=== PATIENT | female | born 1995 | race Caucasian/White ===

== ENCOUNTER → 2016-09-14 | Day surgery (SDC) | payer OTHER ==
[~2016-09-14] MED LIST: ALIG4CAP PO; DICY10CA13 PO; KETOROLAC 60 MG/2 ML VIAL (J1885) As Ordered ONE; LEVA12INH INH; LIDOCAINE 1% SDV INJ 30 ML VIAL As Ordered ONE; LIDOCAINE 2% INJ 100 MG/5 ML SDV (FOR ANES.) As Ordered ONE; LR 1,000 ML IV SCH; METHYLERGONOVINE MALEATE 0.2 MG/ML VIAL (J2210) As Ordered ONE; METHYLERGONOVINE MALEATE 0.2 MG/ML VIAL (J2210) XX ONE; MIDAZOLAM INJ 2 MG/2 ML VIAL (J2250) As Ordered ONE; OMEP20CA3 PO; ONDANSETRON 4MG/2ML VIAL (J2405) As Ordered ONE; ONDANSETRON 4MG/2ML VIAL (J2405) IV PRN; PRENTAB44 PO; PROPOFOL 200 MG/20 ML VIAL As Ordered ONE; RANI150T PO; ZOFR4TAB3 PO; fentaNYL 100 MCG/2 ML INJECTION (J3010) As Ordered ONE; fentaNYL 100 MCG/2 ML INJECTION (J3010) IV PRN; miSOPROStol 200 MCG TAB (S0191) As Ordered ONE; miSOPROStol 200 MCG TAB (S0191) XX ONE
[2016-09-14 13:20] VITALS: BP 116/55
--- NOTE | 2016-09-14 18:21 | RO ---
DATE OF PROCEDURE: 09/14/2016 PREPROCEDURE DIAGNOSIS: demise 11 weeks gestation. POSTPROCEDURE DIAGNOSIS: demise 11 weeks gestation. OPERATIVE PROCEDURE: Suction dilation and curettage (D and C). Ultrasound assisted. SURGEON: Milton Arthur MD SKI TECHNICIAN: ANESTHESIA: General endotracheal. ESTIMATED BLOOD LOSS: 300 mL. FINDINGS: 11-12 week size uterus, moderate amounts of products of conception, moderate uterine atony encountered. URINE OUTPUT: 100 mL. DESCRIPTION OF PROCEDURE: The patient was taken to the operating room where general endotracheal anesthesia was induced. She was prepped and draped in a sterile fashion, in the dorsal lithotomy position. A speculum was placed in the vagina. The anterior lip of the cervix was grasped with tenaculum. Cervix was dilated with tapered dilators. A #11 mm suction curette was inserted through the internal os. Suction device was activated and the curette was gently rotated and products of conception were noted coming through the suction tubing. A large unexpected amount of bleeding was encountered. Repeat suctioning was performed. Sharp curettage was performed. The patient received Methergine 0.2 mg intramuscular (IM). She received Cytotec 800 mcg per rectum. Ultrasound was brought in to ensure complete evacuation of the uterus. There was a moderate amount of debris consistent with retained blood clot of the uterus. Suction and curettage was performed under ultrasound guidance. Sharp curettage performed. At the end of the procedure there was defined discrete endometrial stripe noted. Excellent uterine tone was noted with no excess bleeding. Products of conception were examined in the operating room. Speculum was removed. Sponge and instrument counts were correct. The patient went to the recovery room in stable condition.
== END | disposition home or self-care (01) ==
LOC: M SDC 07:12
PROVIDERS: ATTEND Specialist
DX: O02.89 Other abnormal products of conception (principal); Z88.0 Allergy status to penicillin
CPT/HCPCS: 36415; 59870; 85014; 85018; 88305; J1885; J2210; J2250; J2405; J3010

== ENCOUNTER → 2016-10-08 | Outpatient (REF) | payer OTHER ==
[~2016-10-08] MED LIST changes: -KETOROLAC 60 MG/2 ML VIAL (J1885) As Ordered ONE; -LIDOCAINE 1% SDV INJ 30 ML VIAL As Ordered ONE; -LIDOCAINE 2% INJ 100 MG/5 ML SDV (FOR ANES.) As Ordered ONE; -LR 1,000 ML IV SCH; -METHYLERGONOVINE MALEATE 0.2 MG/ML VIAL (J2210) As Ordered ONE; -METHYLERGONOVINE MALEATE 0.2 MG/ML VIAL (J2210) XX ONE; -MIDAZOLAM INJ 2 MG/2 ML VIAL (J2250) As Ordered ONE; -ONDANSETRON 4MG/2ML VIAL (J2405) As Ordered ONE; -ONDANSETRON 4MG/2ML VIAL (J2405) IV PRN; -PROPOFOL 200 MG/20 ML VIAL As Ordered ONE; -fentaNYL 100 MCG/2 ML INJECTION (J3010) As Ordered ONE; -fentaNYL 100 MCG/2 ML INJECTION (J3010) IV PRN; -miSOPROStol 200 MCG TAB (S0191) As Ordered ONE; -miSOPROStol 200 MCG TAB (S0191) XX ONE
== END ==
LOC: M LAB REF 16:06
PROVIDERS: ATTEND Specialist
DX: O08.0 Genital tract and pelvic infection following ectopic and molar pregnancy (principal)

== ENCOUNTER → 2016-10-23 | Outpatient (CLI) | payer OTHER | LOC: M SMT 10:03 | PROVIDERS: ATTEND Specialist | DX: O02.1 Missed abortion (principal) ==

== ENCOUNTER → 2016-11-24 | Outpatient (REF) | payer OTHER | LOC: M LABDRWLA 15:55 | PROVIDERS: ATTEND Specialist | DX: Z32.00 Encounter for pregnancy test, result unknown (principal) ==

== ENCOUNTER → 2016-12-22 | Outpatient (REF) | payer OTHER | LOC: M LABDRWLA 15:04 | PROVIDERS: ATTEND Specialist | DX: O09.A2 Supervision of pregnancy with history of molar pregnancy, second trimester (principal) ==

== ENCOUNTER → 2017-01-21 | Outpatient (REF) | payer OTHER | LOC: M LABDRWAD 14:53 | PROVIDERS: ATTEND Specialist | DX: O02.1 Missed abortion (principal) ==

== ENCOUNTER → 2017-02-23 | Outpatient (REF) | payer OTHER | LOC: M LAB REF 14:44 | PROVIDERS: ATTEND Specialist | DX: O02.1 Missed abortion (principal) ==

== ENCOUNTER → 2017-04-26 | Outpatient (CLI) | payer OTHER ==
[2017-04-26 13:59] LABS: BASO % 0.5 % (0.0-1.0); EOS % 0.9 % (0.0-3.0); LARGE UNSTAINED CELL # 0.1 K/mm3 (0.0-0.4); LARGE UNSTAINED CELL % 1.4 % (0.0-4.0); LYMPH # 1.1 K/mm3 (1.5-6.5); LYMPH % 25.2 % (24.0-44.0); MEAN CORPUSCULAR HEMOGLOBIN 31.6 pg (27.0-33.0); MEAN CORPUSCULAR HGB CONC 34.6 g/dl (32.0-36.5); MEAN CORPUSCULAR VOLUME 91.1 fl (80.0-96.0); MONO # 0.3 K/mm3 (0.0-0.8); MONO % 5.7 % (0.0-5.0); NEUTROPHILS % 66.3 % (36.0-66.0); PLATELET COUNT, AUTOMATED 174 k/mm3 (150-450); RED CELL DISTRIBUTION WIDTH 11.9 % (11.5-14.5); WHITE BLOOD COUNT 4.5 K/mm3 (4.0-10.0)
[2017-04-26 14:50] LABS: HBsAg Prenatal NEGATIVE (NEGATIVE)
== END ==
LOC: M SMT 11:45
PROVIDERS: ATTEND Specialist
DX: Z34.81 Encounter for supervision of other normal pregnancy, first trimester (principal)

== ENCOUNTER → 2017-07-07 | Outpatient (CLI) | payer OTHER | LOC: M SMT 08:37 | PROVIDERS: ATTEND Obstetrics & Gynecology | DX: Z13.79 Encounter for other screening for genetic and chromosomal anomalies (principal) ==

== ENCOUNTER → 2017-07-26 | Outpatient (CLI) | payer OTHER ==
--- NOTE | 2017-07-26 19:16 | REP ---
Obstetric sonography: History: Supervision of , second trimester study for anatomy. Findings: Scanning through the gravid uterus demonstrates a viable single intrauterine gestation in a variable lie. motion is observed and heart rate is recorded at 147 beats per minute. A posterior placenta is seen grade 0 without evidence of previa or abruption. Amniotic fluid is subjectively normal. Closed cervical length measured transabdominally is 3.7 cm. No extrauterine abnormalities observed. There is a small choroid plexus cyst on the left side of the cranium. No other anatomic finding. The following anatomic structures are identified and felt to be sonographically unremarkable: cranium, cavum, cerebellum and posterior fossa, face and profile, lungs, four-chamber heart with left and right ventricular outflow tract views, diaphragm, left-sided stomach, abdominal wall cord insertion, three-vessel umbilical cord, kidneys and bladder, spine, upper and lower extremities. Biometry chart: BPD is 4.7 cm = 20 weeks 1 day HC 17.9 cm = 20 weeks 2 days AC 16.0 cm = 21 weeks 1 day FL 3.1 cm = 19 weeks 4 days HL 3.1 cm = 20 weeks 2 days HC/AC ratio normal 1.12. Cephalic index normal 0.72. Estimated weight 352 grams, 0 pounds 12 ounces, greater than 97th percentile for 19 weeks 1 day. Impression: Viable single intrauterine gestation at 20 weeks 2 days by today's composite sonographic criteria. JED by today's sonography December 11, 2017. A small, 4.6 mm, left sided choroid plexus cyst is seen. No other anatomic abnormality seen. Signed by Scott Guerrero MD 07/26/2017 07:58 P
== END ==
LOC: M RAD 15:48
PROVIDERS: ATTEND Obstetrics & Gynecology
DX: Z34.82 Encounter for supervision of other normal pregnancy, second trimester (principal); Z3A.20 20 weeks gestation of pregnancy

== ENCOUNTER → 2017-09-13 | Outpatient (CLI) | payer OTHER ==
[2017-09-13 13:50] LABS: HEMATOCRIT 35.9 % (36.0-47.0); HEMOGLOBIN 11.9 g/dl (12.0-16.0); MEAN CORPUSCULAR HEMOGLOBIN 30.6 pg (27.0-33.0); MEAN CORPUSCULAR HGB CONC 33.1 g/dl (32.0-36.5); MEAN CORPUSCULAR VOLUME 92.3 fl (80.0-96.0); PLATELET COUNT, AUTOMATED 156 10^3/uL (150-450); RED BLOOD COUNT 3.89 10^6/uL (4.00-5.40); RED CELL DISTRIBUTION WIDTH 13.1 % (11.5-14.5); WHITE BLOOD COUNT 8.5 10^3/uL (4.0-10.0)
[2017-09-13 14:13] LABS: GLUCOSE CHALLENGE TEST 1 HOUR 70 MG/DL (LESS THAN 140)
== END ==
LOC: M SMT 10:50
DX: Z34.82 Encounter for supervision of other normal pregnancy, second trimester (principal)
CPT/HCPCS: 82950

== ENCOUNTER → 2017-10-25 | Outpatient (CLI) | payer OTHER | LOC: M RAD 18:01 | DX: O36.5931 Maternal care for other known or suspected poor fetal growth, third trimester, fetus 1 (principal); Z3A.34 34 weeks gestation of pregnancy | CPT/HCPCS: 76816 ==

== ENCOUNTER → 2017-11-15 | Outpatient (CLI) | payer OTHER | LOC: M RAD 14:35 | DX: R22.41 Localized swelling, mass and lump, right lower limb (principal) | CPT/HCPCS: 93971 ==

== ENCOUNTER → 2017-11-26 | Outpatient (REF) | payer OTHER | LOC: M LAB REF 17:15 | DX: Z34.83 Encounter for supervision of other normal pregnancy, third trimester (principal) | CPT/HCPCS: 87081 ==

== ENCOUNTER 2017-12-13 05:59 | Inpatient (IN) | payer OTHER ==
[2017-12-13 07:12] LABS: HEMATOCRIT 33.5 % (36.0-47.0); HEMOGLOBIN 11.3 g/dl (12.0-15.5); MEAN CORPUSCULAR HEMOGLOBIN 29.4 pg (27.0-33.0); MEAN CORPUSCULAR HGB CONC 33.7 g/dl (32.0-36.5); MEAN CORPUSCULAR VOLUME 87.2 fl (80.0-96.0); PLATELET COUNT, AUTOMATED 146 10^3/uL (150-450); RED BLOOD COUNT 3.84 10^6/uL (4.00-5.40); WHITE BLOOD COUNT 11.1 10^3/uL (4.0-10.0)
[2017-12-13] MEDS: miSOPROStol 50 MCG 1/2 TAB (S0191) PO (09:12)
[2017-12-13] MEDS ORDERED: miSOPROStol 50 MCG 1/2 TAB (S0191) PO (14:15)
[2017-12-13] MEDS: OXYTOCIN DRIP 30 UNITS in APPROPRIATE DILUENT 1 EA IV (15:22)
[2017-12-13] MEDS: LR 1,000 ML IV (15:22)
[2017-12-13] MEDS ORDERED: PROMETHAZINE INJ 25 MG/ML VIAL (J2550) As Ordered (23:14)
[2017-12-13] MEDS ORDERED: BUTORPHANOL 2 MG/ML INJ (J0595) As Ordered (23:14)
[2017-12-13] MEDS: PROMETHAZINE INJ 25 MG/ML VIAL (J2550) IV (23:21)
[2017-12-13] MEDS: BUTORPHANOL 2 MG/ML INJ (J0595) IV (23:22)
[2017-12-14] MEDS ORDERED: FENTANYL 2MCG/ML ROPIVACAINE 0.2% IN 0.9% NACL 200ML IVBAG As Ordered (03:20)
[2017-12-14] MEDS ORDERED: EPIDURAL COMMENT XX (03:42)
[2017-12-14] MEDS ORDERED: NALOXONE INJ 0.4 MG/1 ML VIAL (J2310) IV (03:42)
[2017-12-14] MEDS ORDERED: LACTATED RINGER'S 1000 ML IV (03:42)
[2017-12-14] MEDS ORDERED: REFRIGERATOR IV KEYS XX (03:42)
[2017-12-14] MEDS ORDERED: ePHEDrine SULFATE 25 MG/5 ML(5MG/ML) SYRINGE IV (03:42)
[2017-12-14] MEDS ORDERED: FENTANYL/ROPIVACAINE/NACL BAG 200 ML EPIDURAL (03:42)
[2017-12-14] MEDS ORDERED: EPIDURAL/PCA KEYS XX (03:42)
[2017-12-14] MEDS ORDERED: ONDANSETRON 4MG/2ML VIAL (J2405) IV ×2 (03:42→16:30)
[2017-12-14] MEDS ORDERED: diphenhydrAMINE INJ 50MG/ML VIAL (J1200) IV (03:42)
[2017-12-14] MEDS: LR 1,000 ML IV ×2 (11:19→16:19)
[2017-12-14] MEDS ORDERED: OXYTOCIN 30 UNITS IN 0.9% NaCl 500ML IV BAG (J2590) As Ordered (14:38)
[2017-12-14] MEDS ORDERED: DOCUSATE SODIUM 100 MG CAP PO (16:30)
[2017-12-14] MEDS ORDERED: PROMETHAZINE 25 MG TAB PO (16:30)
[2017-12-14] MEDS: OXYTOCIN DRIP 30 UNITS in APPROPRIATE DILUENT 1 EA IV (16:56)
[2017-12-14] MEDS: MEASLES,MUMPS,RUBELLA VACCINE INJ (MMR-II) (90707) SC (18:07)
[2017-12-14] MEDS: RHOGAM 300 MCG (1500 IU) INJ (J2790) IM (18:08)
[2017-12-14] MEDS: IBUPROFEN 800 MG TAB PO (20:42)
[2017-12-14] MEDS: DIBUCAINE 1% OINTMENT 30GM TOP (23:11)
[2017-12-14] MEDS: ACETAMINOPHEN 500 MG TAB PO (23:11)
[2017-12-15] MEDS: PRENATAL VITAMINS CHEWABLE TABLET PO (08:24)
[2017-12-15] MEDS: IBUPROFEN 800 MG TAB PO ×2 (08:25→18:20)
[2017-12-15] MEDS: ACETAMINOPHEN 500 MG TAB PO ×2 (14:56→21:56)
[2017-12-16] MEDS: IBUPROFEN 800 MG TAB PO ×2 (01:56→09:44)
[2017-12-16] MEDS: PRENATAL VITAMINS CHEWABLE TABLET PO (08:12)
== END 2017-12-16 10:28 | disposition home or self-care (01) | DRG 560 ==
LOC: M LDI 05:59 → M OBS 12-14 17:32
PROVIDERS: Obstetrics & Gynecology
PROC: 3E0P7GC Introduction of Other Therapeutic Substance into Female Reproductive, Via Natural or Artificial Opening (ICD-10-PCS; 2017-12-13)
PROC: 10E0XZZ Delivery of Products of Conception, External Approach (ICD-10-PCS; principal; 2017-12-14)
PROC: 0KQM0ZZ Repair Perineum Muscle, Open Approach (ICD-10-PCS; 2017-12-14)
DX: O26.893 Other specified pregnancy related conditions, third trimester (principal); M32.9 Systemic lupus erythematosus, unspecified; Z3A.39 39 weeks gestation of pregnancy; O69.81X0 Labor and delivery complicated by cord around neck, without compression, not applicable or unspecified; Z37.0 Single live birth; Z88.0 Allergy status to penicillin; Z88.7 Allergy status to serum and vaccine; Z88.1 Allergy status to other antibiotic agents; O70.1 Second degree perineal laceration during delivery

== ENCOUNTER 2019-05-31 13:45 | Emergency (ER) | payer OTHER ==
[~2019-05-31] VITALS: Ht 165.1 cm; Wt 65.9 kg
[~2019-05-31 13:45] MED LIST changes: +IBUP-1114 PO; +MAPA500T2 PO; -OMEP20CA3 PO; +OMEP20CA4 PO; +TUMS750C22 PO; +ZOFR4TAB14 PO; -ZOFR4TAB3 PO
[2019-05-31] MEDS ORDERED: ASPI81CH33 PO (13:54)
[2019-05-31 14:46] LABS: BASO % 0.6 % (0.0-1.0); EOS % 0.2 % (0.0-3.0); HEMATOCRIT 37.2 % (36.0-47.0); HEMOGLOBIN 12.9 g/dl (12.0-15.5); LYMPH # 1.2 10^3/uL (1.5-5.0); LYMPH % 22.3 % (24.0-44.0); MEAN CORPUSCULAR HEMOGLOBIN 30.1 pg (27.0-33.0); MEAN CORPUSCULAR HGB CONC 34.7 g/dl (32.0-36.5); MEAN CORPUSCULAR VOLUME 86.9 fl (80.0-96.0); MONO # 0.4 10^3/uL (0.0-0.8); NEUTROPHILS # 3.6 10^3/uL (1.5-8.5); NEUTROPHILS % 68.7 % (36.0-66.0); PLATELET COUNT, AUTOMATED 152 10^3/uL (150-450); RED BLOOD COUNT 4.28 10^6/uL (4.00-5.40); WHITE BLOOD COUNT 5.3 10^3/uL (4.0-10.0)
[2019-05-31 15:05] LABS: BLOOD UREA NITROGEN 11 MG/DL (7-18); CALCIUM LEVEL 9.3 MG/DL (8.5-10.1); CARBON DIOXIDE LEVEL 22 MEQ/L (21-32); CHLORIDE LEVEL 109 MEQ/L (98-107); CREATININE FOR GFR 0.64 MG/DL (0.55-1.30); GLOMERULAR FILTRATION RATE > 60.0 (>60); GLUCOSE, FASTING 97 MG/DL (70-100); POTASSIUM SERUM 3.7 MEQ/L (3.5-5.1); SODIUM LEVEL 139 MEQ/L (136-145)
--- NOTE | 2019-05-31 15:20 | REP ---
EMERGENCY FIRST TRIMESTER OBSTETRIC SONOGRAPHY: HISTORY: Cramping and spotting. 7 weeks 4 days by dates. FINDINGS: Transabdominal sonography confirms the presence of a living single intrauterine gestation. The embryonic pole measures 6 mm. This corresponds with a gestational age estimate of 6 weeks 2 days. heart rate is recorded at 100 beats per minute. No subchorionic hemorrhage is identified. There is a 3.1 x 2.7 x 2.4 cm cyst in the maternal left ovary consistent with corpus luteum. IMPRESSION: Viable single intrauterine gestation at 6 weeks 2 days by crown-rump length. There is a 3.1 cm cyst in the maternal left ovary consistent with corpus luteum. heart rate is slightly low at 100 beats per minute. Electronically Signed by Scott Guerrero MD 05/31/2019 05:46 P
[2019-05-31 16:38] LABS: HCG, SERUM QUANTITATIVE 9417 MIU/ML
[2019-05-31 16:54] VITALS: BP 120/60
== END 2019-05-31 17:16 | disposition home or self-care (01) ==
LOC: M ED 13:45
DX: O26.891 Other specified pregnancy related conditions, first trimester (principal); R10.2 Pelvic and perineal pain; Z3A.01 Less than 8 weeks gestation of pregnancy; M32.9 Systemic lupus erythematosus, unspecified; Z79.82 Long term (current) use of aspirin; Z88.0 Allergy status to penicillin; Z88.1 Allergy status to other antibiotic agents; Z88.7 Allergy status to serum and vaccine

== ENCOUNTER → 2019-06-19 | Outpatient (REF) | payer OTHER ==
[~2019-06-19] MED LIST changes: +ASPI81CH33 PO
== END ==
LOC: M LAB REF 19:49
PROVIDERS: ATTEND Obstetrics & Gynecology
DX: O03.4 Incomplete spontaneous abortion without complication (principal)

== ENCOUNTER → 2019-08-05 | Outpatient (CLI) | payer OTHER ==
[~2019-08-05] MED LIST changes: +OMEP-172 PO; -OMEP20CA4 PO
[2019-08-05 10:51] LABS: COMPLEMENT C3 102 MG/DL (90-180); COMPLEMENT C4 33 MG/DL (10-40)
[2019-08-08 00:09] LABS: ANTINUCLEAR ANTIBODIES DIRECT Negative (Negative); CARDIOLIPIN IGA ANTIBODY <9 APL U/mL (0-11); CARDIOLIPIN IGG ANTIBODY <9 GPL U/mL (0-14); CARDIOLIPIN IGM ANTIBODY <9 MPL U/mL (0-12)
== END ==
LOC: M LAB 09:40
PROVIDERS: ATTEND Internal Medicine Rheumatology
DX: R76.8 Other specified abnormal immunological findings in serum (principal); M25.50 Pain in unspecified joint

== ENCOUNTER → 2019-10-06 | Outpatient (CLI) | payer OTHER ==
[~2019-10-06] MED LIST changes: -OMEP-172 PO; +OMEP1CAP73 PO
== END ==
LOC: M LAB 12:09
PROVIDERS: ATTEND Obstetrics & Gynecology
DX: O26.21 Pregnancy care for patient with recurrent pregnancy loss, first trimester (principal); Z3A.00 Weeks of gestation of pregnancy not specified

== ENCOUNTER → 2019-10-08 | Outpatient (CLI) | payer OTHER | LOC: M LAB 11:19 | PROVIDERS: ATTEND Obstetrics & Gynecology | DX: O26.21 Pregnancy care for patient with recurrent pregnancy loss, first trimester (principal) ==

== ENCOUNTER → 2019-11-07 | Outpatient (REF) | payer OTHER ==
[2019-11-07 14:12] LABS: HEMATOCRIT 39.5 % (36.0-47.0); HEMOGLOBIN 13.4 g/dl (12.0-15.5); MEAN CORPUSCULAR HGB CONC 33.9 g/dl (32.0-36.5); MEAN CORPUSCULAR VOLUME 88.6 fl (80.0-96.0); PLATELET COUNT, AUTOMATED 193 10^3/uL (150-450); RED BLOOD COUNT 4.46 10^6/uL (4.00-5.40); WHITE BLOOD COUNT 5.5 10^3/uL (4.0-10.0)
[2019-11-07 16:04] LABS: CHLAMYDIA DNA AMPLIFICATION NEGATIVE (NEGATIVE); GC DNA AMPLIFICATION NEGATIVE (NEGATIVE)
[2019-11-08 08:52] LABS: HEPATITIS B SURFACE ANTIGEN NEGATIVE (NEGATIVE); HEPATITIS C VIRUS ABY INDEX 0.1 INDEX (<0.8); HIV 1&2 SCREEN CENTAUR NEGATIVE (NEGATIVE); RUBELLA IgG QUALITATIVE IMMUNE (IMMUNE)
== END ==
LOC: M PLALAB 12:10
PROVIDERS: ATTEND Specialist
DX: Z34.81 Encounter for supervision of other normal pregnancy, first trimester (principal)

== ENCOUNTER → 2019-12-07 | Outpatient (CLI) | payer OTHER | LOC: M PLALAB 10:58 | PROVIDERS: ATTEND Obstetrics & Gynecology | DX: Z34.81 Encounter for supervision of other normal pregnancy, first trimester (principal); Z36.89 Encounter for other specified antenatal screening ==

== ENCOUNTER → 2019-12-27 | Outpatient (CLI) | payer OTHER ==
--- NOTE | 2019-12-28 02:56 | REP ---
Clinical: Early with spotting. Comparison: None . Findings: Examination demonstrates a single live intrauterine in breech presentation. motion is identified by technologist. Placenta is noted anterior and grade zero without evidence for placenta previa or abruption. Amniotic fluid volume is normal. Cervix measures 3.2 cm in length and appears closed. Presumed gestational is 15 weeks 6 days with JED 06/13/2020 . FHR equals 135 beats per minute. Impression: 1. Single live early intrauterine in breech presentation. 2. Placenta noted anteriorly, grade zero and without placenta previa. 3. A focal complex hyperechoic fluid collection overlies the closed internal os and may represent hemorrhagic debris. Follow-up at the time of the anatomical assessment and 19-20 weeks may be warranted.
== END ==
LOC: M WHC 15:01
PROVIDERS: ATTEND Advanced Practice Midwife
DX: O26.852 Spotting complicating pregnancy, second trimester (principal)

== ENCOUNTER → 2020-01-16 | Outpatient (CLI) | payer OTHER ==
--- NOTE | 2020-01-16 18:29 | REP ---
Clinical: Anatomical evaluation. Comparison: 12/27/2019 . Findings: Examination demonstrates a single live intrauterine in variable presentation. motion is identified by technologist. Placenta is noted anterior and grade I without evidence for placenta previa or abruption. Incidental placental venous benites noted. Amniotic fluid volume is normal. Cervix measures 3.1 cm in length and appears closed. No evidence for nuchal cord. Gestational age by first US 18 weeks 5 days with JED 06/13/2020 . Gestational age by current measurements 19 weeks 4 days with JED 06/07/2020 . FHR equals 154 beats per minute. Estimated weight 336 grams ( greater than 97th percentile based on age by first ultrasound; 85th percentile based on age by current measurements ). Anatomical assessment demonstrates normal structures including cranium, cavum, cerebellum/posterior fossa, facial features, lungs, four-chamber heart/ventricular outflow tracts, diaphragm, stomach, cord insertion/three-vessel cord, kidneys/bladder, spine, and extremities. Small 3 mm cyst in the right choroid plexus. Impression: 1. Single live intrauterine in variable presentation. Discrepant growth between first ultrasound and current examination may warrant further investigation. 2. Anatomical assessment is relatively normal. Small 3 mm right choroid plexus cyst noted.
== END ==
LOC: M WHC 13:35
PROVIDERS: ATTEND Obstetrics & Gynecology
DX: Z34.82 Encounter for supervision of other normal pregnancy, second trimester (principal); Z3A.16 16 weeks gestation of pregnancy

== ENCOUNTER → 2020-03-28 | Outpatient (REF) | payer OTHER ==
[~2020-03-28] MED LIST changes: +DOCU100C16 PO; +HEPA10IN10 IV; +IBUP80TA PO
[2020-05-01 13:33] LABS: HEMATOCRIT 35.5 % (36.0-47.0); HEMOGLOBIN 11.7 g/dl (12.0-15.5); MEAN CORPUSCULAR HEMOGLOBIN 30.6 pg (27.0-33.0); MEAN CORPUSCULAR VOLUME 92.9 fl (80.0-96.0); PLATELET COUNT, AUTOMATED 142 10^3/uL (150-450); RED BLOOD COUNT 3.82 10^6/uL (4.00-5.40); WHITE BLOOD COUNT 8.9 10^3/uL (4.0-10.0)
== END ==
LOC: M SFHCWAGY 15:24
PROVIDERS: ATTEND Advanced Practice Midwife
DX: Z3A.25 25 weeks gestation of pregnancy (principal)

== ENCOUNTER → 2020-05-01 | Outpatient (CLI) | payer OTHER ==
--- NOTE | 2020-05-17 13:01 | REP ---
LIMITED OBSTETRICAL ULTRASOUND CLINICAL: wellbeing biophysical profile. COMPARISON: 01/16/2020. TECHNIQUE: Transabdominal obstetrical ultrasound with color Doppler evaluation of the fetus. FINDINGS: Single live advanced gestation in cephalic presentation. motion was identified by the technologist. Placenta is noted anteriorly and grade 2 without evidence for placenta previa or abruption. Amniotic fluid volume is normal. Cervix measures 3.3 cm in length and appears closed. Gestational age by last menstrual period (LMP) 36 weeks 6 days with estimated date of delivery 06/13/2020. Gestational age by current measurements 35 weeks 2 days. Estimated date of delivery 06/03/2020. heart rate 132 beats per minute. Amniotic fluid index (FERN) 12.3 cm (8.1-24.8). Biophysical profile score equals 8/8. Estimated weight based on current measurements 2602 g (74th percentile). Umbilical S/D ratio 2.3. IMPRESSION: Single live advanced gestation in cephalic presentation demonstrating appropriate estimated weight and growth. No gross abnormalities are identified. Biophysical profile score equals 8/8. MTDD
== END ==
LOC: M WHC 11:54
PROVIDERS: ATTEND Obstetrics & Gynecology
DX: Z36.89 Encounter for other specified antenatal screening (principal); Z3A.36 36 weeks gestation of pregnancy; O26.893 Other specified pregnancy related conditions, third trimester; M32.9 Systemic lupus erythematosus, unspecified

== ENCOUNTER → 2020-05-21 | Outpatient (REF) | payer OTHER | LOC: M SFHCWAGY 12:56 | PROVIDERS: ATTEND Obstetrics & Gynecology | DX: Z3A.36 36 weeks gestation of pregnancy (principal) ==

== ENCOUNTER 2020-06-05 06:32 | Inpatient (IN) | payer OTHER ==
[2020-06-05] VITALS (49 sets, daily range): BP systolic 92–142; BP diastolic 51–80
[~2020-06-05] VITALS: Ht 165.1 cm; Wt 80.9 kg
[~2020-06-05 06:32] MED LIST changes: -DOCU100C16 PO; -HEPA10IN10 IV; -IBUP80TA PO
[2020-06-05] MEDS ORDERED: HEPA10IN10 IV (07:02)
[2020-06-05] MEDS ORDERED: OXYTOCIN DRIP 30 UNITS in IV 1 EA IV SCH (08:15)
[2020-06-05] MEDS ORDERED: OXYTOCIN 30 UNITS IN 0.9% NaCl 500ML IV BAG (J2590) As Ordered ONE (08:20)
[2020-06-05] MEDS: LR 1,000 ML IV SCH ×2 (08:48→16:50)
[2020-06-05 09:09] LABS: HEMATOCRIT 36.1 % (36.0-47.0); HEMOGLOBIN 11.7 g/dl (12.0-15.5); MEAN CORPUSCULAR HEMOGLOBIN 28.3 pg (27.0-33.0); MEAN CORPUSCULAR HGB CONC 32.4 g/dl (32.0-36.5); MEAN CORPUSCULAR VOLUME 87.2 fl (80.0-96.0); PLATELET COUNT, AUTOMATED 130 10^3/uL (150-450); RED BLOOD COUNT 4.14 10^6/uL (4.00-5.40); WHITE BLOOD COUNT 7.8 10^3/uL (4.0-10.0)
[2020-06-05] MEDS ORDERED: LR 1,000 ML IV ONE (18:15)
[2020-06-05] MEDS ORDERED: FENTANYL 2MCG/ML ROPIVACAINE 0.2% IN 0.9% NACL 100ML IVBAG As Ordered ONE (19:40)
[2020-06-05] MEDS ORDERED: LACTATED RINGER'S 1000 ML IV PRN (21:15)
[2020-06-05] MEDS ORDERED: EPIDURAL/PCA KEYS XX PRN (21:15)
[2020-06-05] MEDS ORDERED: FENTANYL/ROPIVACAINE/NACL BAG 100 ML EPIDURAL SCH (21:15)
[2020-06-05] MEDS ORDERED: ePHEDrine SULFATE 25 MG/5 ML(5MG/ML) SYRINGE IV PRN (21:15)
[2020-06-05] MEDS ORDERED: EPIDURAL COMMENT XX SCH (21:15)
[2020-06-05] MEDS ORDERED: ONDANSETRON 4MG/2ML VIAL IV PRN (21:15)
[2020-06-05] MEDS ORDERED: NALOXONE INJ 0.4MG/1ML VIAL (J2310 PER 1MG) IV PRN (21:15)
[2020-06-05] MEDS ORDERED: diphenhydrAMINE 50MG/ML VIAL (J1200) IV PRN (21:15)
[2020-06-05] MEDS ORDERED: REFRIGERATOR IV KEYS XX PRN (21:15)
[2020-06-06] VITALS (15 sets, daily range): BP systolic 107–125; BP diastolic 53–68
[2020-06-06] MEDS: LR 1,000 ML IV SCH (00:04)
[2020-06-06] MEDS ORDERED: OXYTOCIN DRIP 30 UNITS in IV 1 EA IV SCH (02:38)
[2020-06-06] MEDS ORDERED: ACETAMINOPHEN TAB 650MG DOSE (2X325MG) PO PRN (02:45)
[2020-06-06] MEDS ORDERED: RHOGAM 300 MCG (1500 IU) INJ (J2790) IM SCH (02:45)
[2020-06-06] MEDS ORDERED: DOCUSATE SODIUM 100 MG CAP PO PRN (02:45)
[2020-06-06] MEDS ORDERED: IBUPROFEN 600MG TAB PO PRN (02:45)
[2020-06-06] MEDS ORDERED: DIBUCAINE 1% OINTMENT 30GM TOP PRN (02:45)
[2020-06-06] MEDS ORDERED: MEASLES,MUMPS,RUBELLA VACCINE INJ (MMR-II) (90707) SC SCH (02:45)
[2020-06-06] MEDS ORDERED: METHYLERGONOVINE MALEATE 0.2 MG TAB PO PRN (02:45)
[2020-06-06] MEDS: IBUPROFEN 800 MG TAB PO PRN (09:26)
[2020-06-06] MEDS: PRENATAL VITAMINS CHEWABLE TABLET PO SCH (09:53)
[2020-06-06] MEDS: ACETAMINOPHEN 500 MG TAB PO PRN (15:51)
[2020-06-07] MEDS: ACETAMINOPHEN 500 MG TAB PO PRN (04:58)
[2020-06-07 05:53] VITALS: BP 121/72
--- NOTE | 2020-06-07 08:51 | IPNPDOC ---
Progress Note Date of Service: Jun 07, 2020 Day#: 1 Progress Note PPD1 SUBJECT: Steff is a 25yo [id number] s/p uncomplicated after undergoing IOL at term, delivering at 0130 on 06/06/20, doing well day #1. She has been ambulating, voiding spontaneously without issue and tolerating regular diet. Breast feeding without issue. Reports lochia is like a normal period. No f/c/n/v/CP/SOB/lightheadedness/dizziness. OBJECTIVE: VITAL SIGNS: Within normal limits, afebrile. Alert and oriented times three. Abdomen: Fundus firm at U-2. Soft, NTTP. Extremities: no pain with palpation of calves ASSESSMENT: Steff is a 25yo [id number] s/p uncomplicated after undergoing IOL at term, delivering at 0130 on 06/06/20, doing well day #1. Vitals within normal limits, afebrile, hemodynamically stable with no evidence of infection. PLAN: 1. Discharge to home today. 2. Tylenol and Motrin for pain. 3. Encourage breast feeding and ambulation. 4. Undecided on contraception, considering vasectomy vs Mirena IUD 5. Routine PP visit in 6 weeks in clinic. 6. Discussed return precautions at length. Misty Nino MD VS, I&O, 24H, Fishbone Vital Signs/I&O Vital Signs Date Time Temp Pulse Resp B/P (MAP) Pulse Ox O2 Delivery O2 Flow Rate FiO2 06/07/20 05:53 98.0 70 17 121/72 (88) 06/06/20 11:33 97 Room Air Misty Nino MD Jun 07, 2020 08:51
[2020-06-07] MEDS ORDERED: IBUP80TA PO (08:56)
[2020-06-07] MEDS ORDERED: DOCU100C16 PO (08:56)
--- NOTE | 2020-06-07 08:58 | DS.PDOC ---
Discharge Summary General Date of Admission Jun 05, 2020 at 06:32 Date of Discharge Jun 07, 2020 Discharge Summary PROCEDURES PERFORMED DURING STAY: spontaneous vaginal delivery ADMITTING DIAGNOSES: 1. IOL at term 2. SLE DISCHARGE DIAGNOSES: 1. IOL at term, delivered 2. SLE COMPLICATIONS/CHIEF COMPLAINT: Induction. HISTORY OF PRESENT ILLNESS/HOSPITAL COURSE: Steff is a 25yo [id number] s/p uncomplicated after undergoing IOL at term, delivering at 0130 on 06/06/20. She has had a benign course. At time of discharge, vitals were within normal limits, afebrile, hemodynamically stable with no evidence of infection. DISCHARGE MEDICATIONS: Please see below. ALLERGIES: Please see below. PHYSICAL EXAMINATION ON DISCHARGE: VITAL SIGNS: Within normal limits, afebrile. Alert and oriented times three. Abdomen: Fundus firm at U-2. Soft, NTTP. Extremities: no pain with palpation of calves LABORATORY DATA: Please see below. ACTIVITY: As tolerated, vaginal rest no heavy lifting 6 weeks DIET: regular DISPOSITION: home DISCHARGE PLAN/INSTRUCTIONS: 1. Discharge to home today. 2. Tylenol and Motrin for pain. 3. Encourage breast feeding and ambulation. 4. Undecided on contraception, considering vasectomy vs Mirena IUD 5. Routine PP visit in 6 weeks in clinic. 6. Discussed return precautions at length. DISCHARGE CONDITION: Stable TIME SPENT ON DISCHARGE: Greater than 20 minutes. Misty Nino MD Vital Signs/I&Os Vital Signs Date Time Temp Pulse Resp B/P (MAP) Pulse Ox O2 Delivery O2 Flow Rate FiO2 06/07/20 05:53 98.0 70 17 121/72 (88) 06/06/20 11:33 97 Room Air Discharge Medications Scheduled Multivitamins/ ( Formula 27-1 mg) 1 Tab Tab, 1 TAB PO DAILY, (Reported) Scheduled PRN Docusate Sodium (Docusate Sodium) 100 Mg Capsule, 100 MG PO QHSP PRN for CONSTIPATION Ibuprofen (Ibuprofen) 800 Mg Tablet, 800 MG PO Q8HP PRN for PAIN LEVEL 6-10 Allergies Coded Allergies: Penicillins (Verified Allergy, Unknown, hives, 05/31/19) Pertussis Vaccines (Verified Allergy, Unknown, hives, 05/31/19) levofloxacin (Verified Adverse Reaction, Unknown, "disoriented", 05/31/19) Misty Nino MD Jun 07, 2020 08:58
[2020-06-07] MEDS: PRENATAL VITAMINS CHEWABLE TABLET PO SCH (09:03)
[2020-06-07] MEDS: IBUPROFEN 800 MG TAB PO PRN (10:53)
== END 2020-06-07 12:17 | disposition home or self-care (01) | DRG 560 ==
LOC: M LDI 06:32 → M OBS 06-06 04:37
PROVIDERS: ADMIT Specialist; ATTEND Advanced Practice Midwife
PROC: 10907ZC Drainage of Amniotic Fluid, Therapeutic from Products of Conception, Via Natural or Artificial Opening (ICD-10-PCS; 2020-06-05)
PROC: 3E033VJ Introduction of Other Hormone into Peripheral Vein, Percutaneous Approach (ICD-10-PCS; 2020-06-05)
PROC: 10E0XZZ Delivery of Products of Conception, External Approach (ICD-10-PCS; principal; 2020-06-06)
DX: O99.892 Other specified diseases and conditions complicating childbirth (principal); M32.9 Systemic lupus erythematosus, unspecified; O26.893 Other specified pregnancy related conditions, third trimester; Z3A.39 39 weeks gestation of pregnancy; O69.81X0 Labor and delivery complicated by cord around neck, without compression, not applicable or unspecified; Z37.0 Single live birth

== ENCOUNTER → 2023-03-10 | Outpatient (CLI) | payer OTHER ==
[~2023-03-10] MED LIST changes: +DICY-61 PO; -DICY10CA13 PO; +DOCU100C16 PO; +HEPA10IN27 IV; +IBUP80TA PO
== END ==
LOC: M RAD 11:34
PROVIDERS: ATTEND Physician Assistant Medical
DX: E04.1 Nontoxic single thyroid nodule (principal)